=== PATIENT | female | born 1930 | race Caucasian/White ===

== ENCOUNTER 2018-08-13 16:46 | Emergency (ER) | payer BC ==
[2018-08-13 16:55] VITALS: BP 177/78; PULSE 90; TEMP 98.2; BMI 31.2
[2018-08-13] MEDS ORDERED: KETOROLAC TROMETHAMINE 30 MG/1 ML VIAL IM ONE (17:32)
[2018-08-13] MEDS ORDERED: KETOROLAC TROMETHAMINE 30 MG/1 ML VIAL ONE (17:32)
--- NOTE | 2018-08-13 17:51 | PDOC ---
History of Present Illness - General Chief Complaint: Pain Stated Complaint: HAND INJURY Time Seen by Provider: 08/13/18 17:07 History Source: Patient - History of Present Illness Occurred: reports: this afternoon Upper Extremity Pain Location: left: 3rd finger Past History - Past Medical History Allergies/Adverse Reactions: Allergies Allergy/AdvReac Type Severity Reaction Status Date / Time No Known Allergies Allergy Verified 08/13/18 16:51 COPD: No - Suicide/Smoking/Psychosocial Hx Smoking History: Current every day smoker Number of Cigarettes Smoked Daily: 20 Information on smoking cessation initiated: Yes 'Breaking Loose' booklet given: 08/13/18 Hx Alcohol Use: No Drug/Substance Use Hx: No Review of Systems - Review of Systems Musculoskeletal: Yes: Joint Pain. No: Joint Swelling *Physical Exam - Vital Signs Last Vital Signs Temp Pulse Resp BP Pulse Ox 98.2 F 90 16 177/78 99 08/13/18 16:53 08/13/18 16:53 08/13/18 16:53 08/13/18 16:53 08/13/18 16:53 - Physical Exam General Appearance: Yes: Appropriately Dressed. No: Apparent Distress HEENT: positive: Normal Voice Neck: positive: Supple Respiratory/Chest: negative: Respiratory Distress Extremity: positive: Other (L 3rd finger help in flexed postion at MCP/PIP/DIP joints, painful to move, no sswelling, no nodule palpated) Integumentary: positive: Dry, Warm Neurologic: positive: Alert, Normal Mood/Affect ED Treatment Course - RADIOLOGY Radiology Studies Ordered: Category Date Time Status FINGER(S) RIGHT [RAD] Stat Radiology 08/13/18 17:26 Ordered - Medications Given in the ED: ED Medications Discontinued Medications Generic Name Dose Route Start Last Admin Trade Name Freq PRN Reason Stop Dose Admin Ketorolac Tromethamine 30 mg 08/13/18 17:32 08/13/18 17:38 Toradol Injection - IM 08/13/18 17:33 30 mg ONCE ONE Administration Medical Decision Making - Medical Decision Making 08/13/18 17:45 87 yo F, no pmhx, here with complaint that she is unable to extend L 3rd digit after lifting up heavy object today. See exam Traumatic trigger finger ? same in past -xr -pain control -local block and splint -hand f/u 08/13/18 18:24 XR neg for fx/dislocation. S/p local block, was able to fully straighten finger w/ gentle manipulation w/ immediate pain relief per pt. Splint placed w/ aluminum-foam splint placed along volar aspect of DIPJ to proximal palm w/ ~10 degree bend at MCPJ w/ tape placed. Hand referral given *DC/Admit/Observation/Transfer Diagnosis at time of Disposition: Trigger finger Qualifiers: Trigger finger location: middle finger Laterality: right Qualified Code(s): M65.331 - Trigger finger, right middle finger - Discharge Dispostion Disposition: HOME Condition at time of disposition: Improved - Referrals Referrals: Gerson Ayon [Primary Care Provider] - - Patient Instructions Printed Discharge Instructions: DI for Trigger Finger Additional Instructions: Were treated for a trigger finger in ED. Keep splint in place and follow-up with Dr. Peña of hand in 1 week: DREA PEÑA MD General Surgery (Primary Specialty) [address] [place] [address], [address] [place] [phone] - Post Discharge Activity
== END 2018-08-13 18:30 | disposition home or self-care (01) ==
LOC: JERFT 16:46
PROC: 2W3JX1Z Immobilization of Right Finger using Splint (ICD-10-PCS; principal; 2018-08-13)
PROC: 3E0233Z Introduction of Anti-inflammatory into Muscle, Percutaneous Approach (ICD-10-PCS; 2018-08-13)
DX: M65.331 Trigger finger, right middle finger (principal); X50.9XXA Other and unspecified overexertion or strenuous movements or postures, initial encounter; Y93.89 Activity, other specified; Y92.89 Other specified places as the place of occurrence of the external cause; Y99.8 Other external cause status
CPT/HCPCS: 29130; 73140-TC-RT-FY; 96372; 99281-25